=== PATIENT | female | born 1960 | race African-American/Black ===

== ENCOUNTER 2020-06-16 10:20 | Emergency (ER) | payer MEDICAID ==
[~2020-06-16] VITALS: Ht 157.5 cm; Wt 101.0 kg
[2020-06-16 11:32] LABS: CLARITY URINE TURBID (CLEAR); COLOR URINE DK YELLOW (YELLOW); KETONES URINE TRACE (NEGATIVE); LEUKOCYTE ESTERASE URINE 3+ (NEGATIVE); NITRITE URINE NEGATIVE (NEGATIVE); OCCULT BLOOD URINE 3+ (NEGATIVE); PROTEIN URINE 1+ (NEGATIVE); SPECIFIC GRAVITY URINE 1.015 (1.005-1.030)
[2020-06-16 12:17] LABS: HEMATOCRIT. 28.4 % (36.0-48.0); HEMOGLOBIN. 9.1 g/dL (12.0-16.0); MEAN CORPUSCULAR HEMOGLOBIN 25.1 pg (28.0-32.0); MEAN PLATELET VOLUME 8.5 fl (7.4-10.4); PLATELET 643 x1000/uL (130-400); RED BLOOD CELL COUNT 3.64 mill/uL (4.2-5.4); RED CELL DISTRIBUTION WIDTH 16.9 % (11.6-14.6)
[2020-06-16 12:24] LABS: CHLORIDE 97 mEq/L (98-107)
[2020-06-16 12:40] VITALS: BP 107/75
[2020-06-16 13:02] LABS: PLATELET ESTIMATE INCREASED
== END 2020-06-16 13:27 | disposition home or self-care (01) ==
LOC: ER 10:20
DX: N10 Acute pyelonephritis (principal); I10 Essential (primary) hypertension
CPT/HCPCS: 36415; 71045; 80053; 81003; 85025; 87077; 87186; 93005; 99285